=== PATIENT | female | born 1940 ===

== ENCOUNTER 2018-10-18 19:18 | Inpatient (IN) | payer OTHER ==
[~2018-10-18] VITALS: Ht 152.4 cm; Wt 36.3 kg
[~2018-10-18 19:18] MED LIST: RAZADYNE ER16 M1 PO
[2018-10-18] MEDS ORDERED: RESTORIL15 M1 PO (19:32)
[2018-10-18] MEDS ORDERED: BUSPIRONE HCL5 MG PO (19:33)
[2018-10-18] MEDS ORDERED: RISPERIDONE0.5 MG PO (19:33)
[2018-10-18] MEDS ORDERED: RAZADYNE ER16 M1 PO (19:33)
== END 2018-10-30 18:38 | disposition home or self-care (01) | DRG 392 ==
LOC: ER 19:18 → MEDJ 10-19 12:19 → SEC-K 10-19 12:19 → MEDJ 10-20 12:07 → SURH 10-20 12:10 → SEC-K 10-20 12:58 → MEDJ 10-20 12:59
PROC: 0DH63UZ Insertion of Feeding Device into Stomach, Percutaneous Approach (ICD-10-PCS; principal; 2018-10-25)
PROC: 3E0G76Z Introduction of Nutritional Substance into Upper GI, Via Natural or Artificial Opening (ICD-10-PCS; 2018-10-25)
PROC: 02HV33Z Insertion of Infusion Device into Superior Vena Cava, Percutaneous Approach (ICD-10-PCS; 2018-10-25)
DX: R13.13 Dysphagia, pharyngeal phase (principal); N39.0 Urinary tract infection, site not specified; F03.91 Unspecified dementia, unspecified severity, with behavioral disturbance; I95.89 Other hypotension; C51.8 Malignant neoplasm of overlapping sites of vulva